=== PATIENT | female | born 1960 | race Caucasian/White ===

== ENCOUNTER 2021-01-19 14:45 | Inpatient (IN) | payer BC, OTHER ==
[2021-01-19] MEDS ORDERED: DEXAMETHASONE SOD PHOSPHATE 4 MG/1 ML VIAL IVPUSH ONE (16:21)
[2021-01-19] MEDS ORDERED: ACETAMINOPHEN 1000 MG/100 ML VIAL (NON FORMULARY) IVPB ONE (16:22)
[2021-01-19] MEDS ORDERED: ONDANSETRON 4 MG/2 ML VIAL IVPUSH ONE (16:23)
[2021-01-19] MEDS ORDERED: ACETAMINOPHEN INJECTION 100 ML IVPB ONE (16:45)
[2021-01-19] MEDS ORDERED: DEXAMETHASONE SOD PHOSPHATE 10 MG/1 ML VIAL ONE (16:45)
[2021-01-19] MEDS ORDERED: ONDANSETRON 4 MG/2 ML VIAL ONE (16:46)
[2021-01-19 16:49] LABS: BASO % 0.3 % (0-2.0); HEMATOCRIT 36.8 % (32.4-45.2); HEMOGLOBIN 12.5 GM/dL (10.7-15.3); MCH 28.4 pg (25.7-33.7); MCHC 33.9 g/dl (32.0-36.0); MEAN PLT VOLUME 7.3 fl (7.5-11.1); MONO % 8.1 % (3.8-10.2); NEUT % 57.6 % (42.8-82.8); PLATELET COUNT 217 K/MM3 (134-434); RBC 4.39 M/mm3 (3.60-5.2); RDW 14.7 % (11.6-15.6); WHITE BLOOD COUNT 3.7 K/mm3 (4.0-10.0)
[2021-01-19 17:08] LABS: POTASSIUM 3.6 mmol/L (3.5-5.1)
[2021-01-19 17:10] LABS: CALCIUM 7.7 mg/dL (8.5-10.1)
[2021-01-19 17:11] LABS: ALBUMIN 3.2 g/dl (3.4-5.0); BLOOD UREA NITROGEN 9.7 mg/dL (7-18)
[2021-01-19 17:13] LABS: BILIRUBIN,DIRECT 0.2 mg/dL (0.0-0.2); CREATININE 0.7 mg/dL (0.55-1.3)
[2021-01-19 17:15] LABS: BILIRUBIN,TOTAL 0.4 mg/dL (0.2-1); TOT PROT 6.8 g/dl (6.4-8.2)
[2021-01-19] MEDS ORDERED: ALBUTEROL SO4 HFA INHALER IH PRN (19:53)
[2021-01-19] MEDS: ASCORBIC ACID 250 MG TABLET (FP) PO SCH (22:07)
[2021-01-19] MEDS ORDERED: ASCORBIC ACID 500 MG TABLET (FP) ONE (22:08)
[2021-01-20] MEDS ORDERED: ALBUTEROL SO4 HFA INHALER IH ONE (03:43)
[2021-01-20] MEDS: LEVOTHYROXINE NA 150 MCG TABLET PO SCH (06:59)
[2021-01-20 08:06] LABS: BASO % 0.2 % (0-2.0); HEMATOCRIT 37.2 % (32.4-45.2); HEMOGLOBIN 12.4 GM/dL (10.7-15.3); LYMPH % 17.3 % (8-40); MCH 28.3 pg (25.7-33.7); MCHC 33.3 g/dl (32.0-36.0); MEAN CELL VOLUME 84.9 fl (80-96); MEAN PLT VOLUME 7.6 fl (7.5-11.1); MONO % 4.9 % (3.8-10.2); NEUT % 77.6 % (42.8-82.8); PLATELET COUNT 199 K/MM3 (134-434); RBC 4.39 M/mm3 (3.60-5.2); RDW 14.9 % (11.6-15.6)
[2021-01-20 08:12] LABS: POTASSIUM 3.9 mmol/L (3.5-5.1)
[2021-01-20 08:15] LABS: CALCIUM 8.1 mg/dL (8.5-10.1)
[2021-01-20 08:16] LABS: ALBUMIN 3.1 g/dl (3.4-5.0); BLOOD UREA NITROGEN 13.1 mg/dL (7-18)
[2021-01-20 08:17] LABS: MAGNESIUM 2.1 mg/dL (1.8-2.4)
[2021-01-20 08:19] LABS: CREATININE 0.7 mg/dL (0.55-1.3); PHOSPHOROUS 3.1 mg/dL (2.5-4.9)
[2021-01-20 08:20] LABS: BILIRUBIN,TOTAL 0.5 mg/dL (0.2-1); TOT PROT 6.8 g/dl (6.4-8.2)
[2021-01-20] MEDS ORDERED: DEXAMETHASONE SOD PHOSPHATE 4 MG/1 ML VIAL ONE (09:09)
[2021-01-20] MEDS ORDERED: ZINC SULFATE 220 MG CAPSULE (FP) ONE (09:09)
[2021-01-20] MEDS ORDERED: ENOXAPARIN NA (PORCINE) 40 MG/0.4 ML DISP.SYRIN SQ ONE (09:09)
[2021-01-20] MEDS ORDERED: FAMOTIDINE 20 MG TABLET ONE (09:09)
[2021-01-20] MEDS: ZINC SULFATE 220 MG CAPSULE (FP) PO SCH (09:39)
[2021-01-20] MEDS: ENOXAPARIN NA (PORCINE) 40 MG/0.4 ML DISP.SYRIN SQ SCH (09:39)
[2021-01-20] MEDS: CHOLECALCIFEROL (VIT D3) 400 UNIT (10 MCG) TABLET PO SCH (09:39)
[2021-01-20] MEDS: ASCORBIC ACID 250 MG TABLET (FP) PO SCH (09:39)
[2021-01-20] MEDS: DEXAMETHASONE SOD PHOSPHATE 4 MG/1 ML VIAL IVPUSH SCH (09:39)
[2021-01-20] MEDS: FAMOTIDINE 20 MG TABLET PO SCH (09:39)
[2021-01-20] MEDS ORDERED: REMDESIVIR 200 MG in SODIUM CHLORIDE 210 ML IVPB ONE (14:00)
[2021-01-20] MEDS ORDERED: BISMUTH SUBSALICYLATE 262 MG/15 ML BTL PO ONE (15:29)
[2021-01-20 18:44] VITALS: BMI 37.1
[2021-01-21] MEDS: MONTELUKAST NA 10 MG TABLET PO SCH ×2 (00:33→21:23)
[2021-01-21] MEDS: ASCORBIC ACID 250 MG TABLET (FP) PO SCH ×3 (00:33→21:23)
[2021-01-21] MEDS ORDERED: PT OWN MED DRAWER 7, Y5N ONE ×3 (00:41→09:11)
[2021-01-21] MEDS: guaiFENesin/D-M SUGAR-FREE/ACLHOL-FREE 118 ML BOTTLE PO PRN ×3 (00:45→21:23)
[2021-01-21] MEDS: BUDESONIDE/FORMETEROL FUMARATE 160/4.5 mcg INHALER IH SCH ×3 (01:19→21:24)
[2021-01-21] MEDS: LEVOTHYROXINE NA 150 MCG TABLET PO SCH (06:59)
[2021-01-21] MEDS ORDERED: ACETAMINOPHEN 325 MG TABLET (FP) PO PRN (09:09)
[2021-01-21] MEDS: DEXAMETHASONE SOD PHOSPHATE 4 MG/1 ML VIAL IVPUSH SCH (09:30)
[2021-01-21] MEDS: ENOXAPARIN NA (PORCINE) 40 MG/0.4 ML DISP.SYRIN SQ SCH (09:30)
[2021-01-21] MEDS: ZINC SULFATE 220 MG CAPSULE (FP) PO SCH (09:31)
[2021-01-21] MEDS: FAMOTIDINE 20 MG TABLET PO SCH (09:31)
[2021-01-21 09:32] LABS: HEMATOCRIT 36.5 % (32.4-45.2); HEMOGLOBIN 12.1 GM/dL (10.7-15.3); MCH 28.2 pg (25.7-33.7); MCHC 33.3 g/dl (32.0-36.0); MEAN CELL VOLUME 84.7 fl (80-96); MEAN PLT VOLUME 7.7 fl (7.5-11.1); PLATELET COUNT 255 K/MM3 (134-434); RBC 4.31 M/mm3 (3.60-5.2); WHITE BLOOD COUNT 8.1 K/mm3 (4.0-10.0)
[2021-01-21] MEDS: CHOLECALCIFEROL (VIT D3) 400 UNIT (10 MCG) TABLET PO SCH (09:32)
[2021-01-21 10:06] LABS: POTASSIUM 3.5 mmol/L (3.5-5.1)
[2021-01-21 10:16] LABS: BLOOD UREA NITROGEN 17.8 mg/dL (7-18); MAGNESIUM 1.9 mg/dL (1.8-2.4)
[2021-01-21 10:18] LABS: PHOSPHOROUS 2.8 mg/dL (2.5-4.9)
[2021-01-21 10:19] LABS: BILIRUBIN,TOTAL 0.4 mg/dL (0.2-1); CREATININE 0.7 mg/dL (0.55-1.3); TOT PROT 6.7 g/dl (6.4-8.2)
[2021-01-21 10:22] LABS: CALCIUM 8.2 mg/dL (8.5-10.1)
[2021-01-21] MEDS: REMDESIVIR 100 MG in SODIUM CHLORIDE 230 ML IVPB SCH ×2 (12:36→14:29)
[2021-01-22] MEDS: LEVOTHYROXINE NA 150 MCG TABLET PO SCH (05:59)
[2021-01-22] MEDS: guaiFENesin/D-M SUGAR-FREE/ACLHOL-FREE 118 ML BOTTLE PO PRN (06:17)
[2021-01-22 09:10] LABS: POTASSIUM 3.6 mmol/L (3.5-5.1)
[2021-01-22 09:19] LABS: ALBUMIN 2.9 g/dl (3.4-5.0); CALCIUM 8.1 mg/dL (8.5-10.1); MAGNESIUM 2.1 mg/dL (1.8-2.4)
[2021-01-22 09:20] LABS: BLOOD UREA NITROGEN 15.2 mg/dL (7-18)
[2021-01-22 09:21] LABS: CREATININE 0.5 mg/dL (0.55-1.3)
[2021-01-22 09:22] LABS: BILIRUBIN,TOTAL 0.3 mg/dL (0.2-1); TOT PROT 6.4 g/dl (6.4-8.2)
[2021-01-22 09:26] LABS: HEMATOCRIT 34.5 % (32.4-45.2); HEMOGLOBIN 11.4 GM/dL (10.7-15.3); MCH 28.2 pg (25.7-33.7); MCHC 33.1 g/dl (32.0-36.0); MEAN CELL VOLUME 85.2 fl (80-96); MEAN PLT VOLUME 7.8 fl (7.5-11.1); PLATELET COUNT 256 K/MM3 (134-434); RBC 4.05 M/mm3 (3.60-5.2); RDW 14.9 % (11.6-15.6); WHITE BLOOD COUNT 5.3 K/mm3 (4.0-10.0)
[2021-01-22] MEDS: BUDESONIDE/FORMETEROL FUMARATE 160/4.5 mcg INHALER IH SCH ×3 (10:00→21:48)
[2021-01-22] MEDS: ENOXAPARIN NA (PORCINE) 40 MG/0.4 ML DISP.SYRIN SQ SCH (11:12)
[2021-01-22] MEDS: DEXAMETHASONE SOD PHOSPHATE 4 MG/1 ML VIAL IVPUSH SCH (11:12)
[2021-01-22] MEDS: ZINC SULFATE 220 MG CAPSULE (FP) PO SCH (11:13)
[2021-01-22] MEDS: CHOLECALCIFEROL (VIT D3) 400 UNIT (10 MCG) TABLET PO SCH (11:13)
[2021-01-22] MEDS: FAMOTIDINE 20 MG TABLET PO SCH (11:13)
[2021-01-22] MEDS ORDERED: PT OWN MED DRAWER 7, Y5N ONE ×2 (11:25→21:22)
[2021-01-22] MEDS: ASCORBIC ACID 250 MG TABLET (FP) PO SCH ×2 (11:36→21:48)
[2021-01-22] MEDS: REMDESIVIR 100 MG in SODIUM CHLORIDE 230 ML IVPB SCH (14:32)
[2021-01-22] MEDS: MONTELUKAST NA 10 MG TABLET PO SCH (21:47)
[2021-01-23] MEDS: LEVOTHYROXINE NA 150 MCG TABLET PO SCH (06:46)
[2021-01-23] MEDS: guaiFENesin/D-M SUGAR-FREE/ACLHOL-FREE 118 ML BOTTLE PO PRN ×2 (06:46→22:10)
[2021-01-23] MEDS ORDERED: PT OWN MED DRAWER 7, Y5N ONE ×2 (10:21→21:06)
[2021-01-23] MEDS: ENOXAPARIN NA (PORCINE) 40 MG/0.4 ML DISP.SYRIN SQ SCH (10:23)
[2021-01-23] MEDS: FAMOTIDINE 20 MG TABLET PO SCH (10:24)
[2021-01-23] MEDS: ZINC SULFATE 220 MG CAPSULE (FP) PO SCH (10:24)
[2021-01-23] MEDS: ASCORBIC ACID 250 MG TABLET (FP) PO SCH ×2 (10:24→22:07)
[2021-01-23] MEDS: CHOLECALCIFEROL (VIT D3) 400 UNIT (10 MCG) TABLET PO SCH (10:24)
[2021-01-23] MEDS: BUDESONIDE/FORMETEROL FUMARATE 160/4.5 mcg INHALER IH SCH ×2 (10:24→22:07)
[2021-01-23] MEDS: DEXAMETHASONE SOD PHOSPHATE 4 MG/1 ML VIAL IVPUSH SCH (10:24)
[2021-01-23] MEDS: REMDESIVIR 100 MG in SODIUM CHLORIDE 230 ML IVPB SCH (13:43)
[2021-01-23] MEDS: MONTELUKAST NA 10 MG TABLET PO SCH (22:06)
[2021-01-24] MEDS: LEVOTHYROXINE NA 150 MCG TABLET PO SCH (06:24)
[2021-01-24] MEDS: guaiFENesin/D-M SUGAR-FREE/ACLHOL-FREE 118 ML BOTTLE PO PRN (06:25)
[2021-01-24 09:10] LABS: HEMATOCRIT 36.5 % (32.4-45.2); HEMOGLOBIN 11.9 GM/dL (10.7-15.3); MCH 27.6 pg (25.7-33.7); MCHC 32.5 g/dl (32.0-36.0); MEAN CELL VOLUME 84.9 fl (80-96); MEAN PLT VOLUME 7.4 fl (7.5-11.1); PLATELET COUNT 307 K/MM3 (134-434); RDW 15.1 % (11.6-15.6); WHITE BLOOD COUNT 9.7 K/mm3 (4.0-10.0)
[2021-01-24 10:07] LABS: ALBUMIN 2.9 g/dl (3.4-5.0); CALCIUM 8.3 mg/dL (8.5-10.1)
[2021-01-24 10:08] LABS: BLOOD UREA NITROGEN 16.1 mg/dL (7-18); MAGNESIUM 1.9 mg/dL (1.8-2.4)
[2021-01-24 10:11] LABS: BILIRUBIN,TOTAL 0.7 mg/dL (0.2-1); CREATININE 0.6 mg/dL (0.55-1.3); TOT PROT 6.6 g/dl (6.4-8.2)
[2021-01-24] MEDS: ENOXAPARIN NA (PORCINE) 40 MG/0.4 ML DISP.SYRIN SQ SCH (10:53)
[2021-01-24] MEDS: ZINC SULFATE 220 MG CAPSULE (FP) PO SCH (10:54)
[2021-01-24] MEDS: CHOLECALCIFEROL (VIT D3) 400 UNIT (10 MCG) TABLET PO SCH (10:54)
[2021-01-24] MEDS: FAMOTIDINE 20 MG TABLET PO SCH (10:54)
[2021-01-24] MEDS: DEXAMETHASONE SOD PHOSPHATE 4 MG/1 ML VIAL IVPUSH SCH (10:54)
[2021-01-24] MEDS: ASCORBIC ACID 250 MG TABLET (FP) PO SCH ×2 (10:54→21:43)
[2021-01-24] MEDS: BUDESONIDE/FORMETEROL FUMARATE 160/4.5 mcg INHALER IH SCH ×2 (10:54→21:43)
[2021-01-24] MEDS ORDERED: REMDESIVIR 100 MG in SODIUM CHLORIDE 230 ML IVPB SCH (12:00)
[2021-01-24] MEDS ORDERED: PT OWN MED DRAWER 7, Y5N ONE (21:16)
[2021-01-24] MEDS: MONTELUKAST NA 10 MG TABLET PO SCH (21:43)
[2021-01-24] MEDS: CODEINE SO4 30 MG TABLET PO PRN (21:45)
[2021-01-25] MEDS: CODEINE SO4 30 MG TABLET PO PRN (06:48)
[2021-01-25] MEDS: LEVOTHYROXINE NA 150 MCG TABLET PO SCH (06:48)
[2021-01-25] MEDS ORDERED: POTASSIUM CHLORIDE TABS 20 MEQ TABLET.ER (FP) PO ONE (09:29)
[2021-01-25] MEDS ORDERED: PT OWN MED DRAWER 7, Y5N ONE ×4 (09:32→21:18)
[2021-01-25] MEDS: ZINC SULFATE 220 MG CAPSULE (FP) PO SCH (09:42)
[2021-01-25] MEDS: DEXAMETHASONE SOD PHOSPHATE 4 MG/1 ML VIAL IVPUSH SCH ×2 (09:43→13:53)
[2021-01-25] MEDS: FAMOTIDINE 20 MG TABLET PO SCH (09:43)
[2021-01-25] MEDS: CHOLECALCIFEROL (VIT D3) 400 UNIT (10 MCG) TABLET PO SCH (09:43)
[2021-01-25] MEDS: BUDESONIDE/FORMETEROL FUMARATE 160/4.5 mcg INHALER IH SCH ×2 (09:45→21:23)
[2021-01-25] MEDS: ENOXAPARIN NA (PORCINE) 40 MG/0.4 ML DISP.SYRIN SQ SCH (09:45)
[2021-01-25] MEDS: ASCORBIC ACID 250 MG TABLET (FP) PO SCH ×2 (09:46→21:22)
[2021-01-25 12:46] LABS: POTASSIUM 3.2 mmol/L (3.5-5.1)
[2021-01-25 12:51] LABS: ALBUMIN 2.9 g/dl (3.4-5.0); BLOOD UREA NITROGEN 13.1 mg/dL (7-18); CALCIUM 8.4 mg/dL (8.5-10.1)
[2021-01-25 12:54] LABS: CREATININE 0.6 mg/dL (0.55-1.3)
[2021-01-25 12:56] LABS: BILIRUBIN,TOTAL 0.9 mg/dL (0.2-1); TOT PROT 6.7 g/dl (6.4-8.2)
[2021-01-25] MEDS: DEXAMETHASONE 4 MG TABLET (FP) PO SCH (15:24)
[2021-01-25] MEDS: MONTELUKAST NA 10 MG TABLET PO SCH (21:22)
[2021-01-26] MEDS: LEVOTHYROXINE NA 150 MCG TABLET PO SCH (06:27)
[2021-01-26] MEDS ORDERED: PT OWN MED DRAWER 7, Y5N ONE ×2 (09:32→22:14)
[2021-01-26] MEDS: CHOLECALCIFEROL (VIT D3) 400 UNIT (10 MCG) TABLET PO SCH (09:41)
[2021-01-26] MEDS: ZINC SULFATE 220 MG CAPSULE (FP) PO SCH (09:42)
[2021-01-26] MEDS: FAMOTIDINE 20 MG TABLET PO SCH ×2 (09:42→22:21)
[2021-01-26] MEDS: ENOXAPARIN NA (PORCINE) 40 MG/0.4 ML DISP.SYRIN SQ SCH (09:42)
[2021-01-26] MEDS: DEXAMETHASONE 4 MG TABLET (FP) PO SCH (09:43)
[2021-01-26] MEDS: ASCORBIC ACID 250 MG TABLET (FP) PO SCH ×2 (09:43→22:21)
[2021-01-26] MEDS: MONTELUKAST NA 10 MG TABLET PO SCH (22:21)
[2021-01-26] MEDS: BUDESONIDE/FORMETEROL FUMARATE 160/4.5 mcg INHALER IH SCH (22:23)
[2021-01-27] MEDS: LEVOTHYROXINE NA 150 MCG TABLET PO SCH (06:31)
[2021-01-27] MEDS ORDERED: POTASSIUM CHLORIDE TABS 20 MEQ TABLET.ER (FP) PO ONE ×2 (09:10→14:00)
[2021-01-27] MEDS ORDERED: PT OWN MED DRAWER 7, Y5N ONE ×2 (09:10→21:50)
[2021-01-27] MEDS: DEXAMETHASONE 4 MG TABLET (FP) PO SCH (10:12)
[2021-01-27] MEDS: ENOXAPARIN NA (PORCINE) 40 MG/0.4 ML DISP.SYRIN SQ SCH (10:12)
[2021-01-27] MEDS: ASCORBIC ACID 250 MG TABLET (FP) PO SCH ×2 (10:13→21:52)
[2021-01-27] MEDS: BUDESONIDE/FORMETEROL FUMARATE 160/4.5 mcg INHALER IH SCH ×2 (10:13→21:52)
[2021-01-27] MEDS: CHOLECALCIFEROL (VIT D3) 400 UNIT (10 MCG) TABLET PO SCH (10:13)
[2021-01-27] MEDS: FAMOTIDINE 20 MG TABLET PO SCH ×2 (10:13→21:52)
[2021-01-27] MEDS: ZINC SULFATE 220 MG CAPSULE (FP) PO SCH (10:13)
[2021-01-27 18:47] VITALS: BP 138/84; PULSE 89; TEMP 98.3
[2021-01-27] MEDS: MONTELUKAST NA 10 MG TABLET PO SCH (21:52)
== END 2021-01-27 23:30 | disposition home or self-care (01) | DRG 177 ==
LOC: JER 14:45 → EDBD 14:45 → JERBED 19:41 → J6S 01-20 16:15
PROVIDERS: ADMIT Hospitalist; ATTEND Internal Medicine
PROC: XW13325 Transfusion of Convalescent Plasma (Nonautologous) into Peripheral Vein, Percutaneous Approach, New Technology Group 5 (ICD-10-PCS; principal; 2021-01-21)
PROC: XW033E5 Introduction of Remdesivir Anti-infective into Peripheral Vein, Percutaneous Approach, New Technology Group 5 (ICD-10-PCS; 2021-01-21)
DX: U07.1 COVID-19 (principal); J12.82 Pneumonia due to coronavirus disease 2019; J96.01 Acute respiratory failure with hypoxia; E03.9 Hypothyroidism, unspecified; R00.0 Tachycardia, unspecified; G47.30 Sleep apnea, unspecified; G47.33 Obstructive sleep apnea (adult) (pediatric); J45.30 Mild persistent asthma, uncomplicated; R19.7 Diarrhea, unspecified
CPT/HCPCS: 36415; 36430; 71045-TC-FY; 80053; 82248; 82550; 82728; 83615; 83735; 84100; 84484; 85025; 85027; 85379; 85651; 85730; 86140; 86769; 86850; 86900; 86901; 87804; 93005; 93010; 94010; 94660; 94761; 97116-GP; 97161-GP; 99285-25; C9399; C9803; J0131; P9017; U0003